=== PATIENT | male | born 1985 | race Caucasian/White ===

== ENCOUNTER 2021-04-26 17:31 | Emergency (ER) | payer MEDICAID ==
[~2021-04-26] VITALS: Ht 175.3 cm; Wt 137.0 kg
[2021-04-26 21:30] VITALS: BP 133/81
== END 2021-04-26 22:03 | disposition home or self-care (01) ==
LOC: ER 17:31
DX: T40.601A Poisoning by unspecified narcotics, accidental (unintentional), initial encounter (principal); Z20.822 Contact with and (suspected) exposure to COVID-19; Y92.018 Other place in single-family (private) house as the place of occurrence of the external cause
CPT/HCPCS: 71045; 87426; 99285